=== PATIENT | male | born 1960 | race African-American/Black ===

== ENCOUNTER 2016-08-21 19:29 | Emergency (ER) | payer OTHER ==
--- NOTE | ~2016-08-21 | CR173 ---
[facility] A Service [facility] RADIOLOGY TEXT RESULTS PATIENT: SCOTTY BRASHER LOCATION: [facility] : 62 UNIT #: [id number] AGE: [address]: Jacob Garcia MD SEX: M ORDER DR: [id number] [facility] [address] [address] [facility]. [place], [place] [address] [id number] MR#: [id number] Acc #: [id number] NAME: SCOTTY BRASHER : 1960 SEX: M STUDY DATE/TIME: 08/21/2016 21:37 UNIT: ARTEMIO ROOM: STUDY DESCRIPTION: CR Knee 3 Views Rt Ordering Physician: Luis Physicians Primary Care Physician: Wale Tinajero Aprn MEDICAL IMAGING REPORT This report is preliminary unless electronic signature is present EXAM Right knee 08/21 INDICATIONS Knee pain radiating proximally. Some swelling. Symptoms started today after fall. FINDINGS 3 views of the right knee were obtained. There is patellofemoral osteoarthritis. There is a small joint effusion. No clear acute fracture is seen. There is a small calcification along the anterior-superior margin of the patella. This could lie within the quadriceps tendon. This would be unusual appearance of an acute fracture. IMPRESSION There is patellofemoral osteoarthritis with a small joint effusion. Small calcification along the anterior-superior margin of the patella is probably a chronic finding within the quadriceps tendon. This would be unusual appearance of an acute fracture fragment. Dictated by... Sha Soliman Jr., M.D. THIS IS AN ELECTRONICALLY VERIFIED REPORT Sha Soliman Jr., M.D. at 08/21/2016 10:25 PM RLK/ally TD: 08/21/2016 22:15 JOB #: [id number] MEDICAL IMAGING REPORT [facility] A Service [facility] RADIOLOGY TEXT RESULTS PATIENT: SCOTTY BRASHER LOCATION: [facility] : 62 UNIT #: [id number] AGE: [address]: Jacob Garcia MD SEX: M ORDER DR: Page 1 of 1 COPY
[~2016-08-21 19:29] MED LIST: [UNRECOGNIZED DRUG - OTHER] PO
== END 2016-08-22 00:20 | disposition home or self-care (01) ==
LOC: CED 19:29
DX: S01.01XA Laceration without foreign body of scalp, initial encounter (principal); S83.91XA Sprain of unspecified site of right knee, initial encounter; W10.9XXA Fall (on) (from) unspecified stairs and steps, initial encounter; Y92.009 Unspecified place in unspecified non-institutional (private) residence as the place of occurrence of the external cause
CPT/HCPCS: 29505; 73562; 99283

== ENCOUNTER → 2016-08-30 | Outpatient (CLI) | payer OTHER ==
[~2016-08-30] MED LIST changes: +HYDROCHLOROTHIA25 MG PO; +SPRITAM250 MG
--- NOTE | ~2016-08-30 | MR104 ---
[facility] A Service of [facility] & [facility] RADIOLOGY TEXT RESULTS PATIENT: SCOTTY BRASHER LOCATION: [facility] : 62 UNIT #: [id number] AGE: [address]: SAQIB CONNOR APRN SEX: M ORDER DR: [id number] [facility] [address] [place], [place] [address] [id number] O MR#: [id number] Acc #: [id number] NAME: SCOTTY RBASHER. : 1960 SEX: M STUDY DATE/TIME: 08/30/2016 13:11 UNIT: [facility] ROOM: STUDY DESCRIPTION: MR Knee Wo Contrast Rt Attending Physician: Saqib Connor Aprn Referring Physician: Saqib Connor Aprn Ordering Physician: Saqib Connor Aprn Primary Care Physician: Wale Tinajero Aprn MRI CENTER REPORT This report is preliminary unless electronic signature is present. EXAM MRI right knee - quadriceps tendon protocol, 08/30/2016 HISTORY Order states right knee pain. Recent fall on 08/21. [place] a pop. Evaluate for quadriceps or patellar tendon rupture. History sheet states no prior surgery. History of leukemia. Anterior knee pain in the patellar region radiates to the lateral side since a fall on 08/21/2016. No knee surgery. FINDINGS There is near complete disruption/detachment of the quadriceps tendon at the patellar insertion. There may be a small stump of tendon along the anterior superior patella. The majority of the tendon is detached with the exception of the posterior half of the vastus lateralis. There is mild patella baja. There is an interposed acute to subacute hematoma with apparent communication between the suprapatellar bursa and the superficial subcutaneous space where there is mild generalized inflammation. The patellar tendon is intact. Cruciate ligaments are normal. Menisci, collateral ligaments, and popliteus tendon are intact. Small full-thickness chondral lesion or fissure of the central weightbearing medial femoral condyle measures approximately 5.0 mm AP x 4.0 mm transverse. Articular cartilage of the medial and lateral compartments is otherwise normal. There is a subcentimeter focus of grade 4 chondromalacia of the patella at the junction of the lateral facet and median ridge. There is underlying marrow edema. [facility]. [facility] A Service of [facility] & [facility] RADIOLOGY TEXT RESULTS PATIENT: SCOTTY BRASHER LOCATION: [facility] : 62 UNIT #: [id number] AGE: [address]: SAQIB CONNOR APRN SEX: M ORDER DR: Posterior subcutaneous inflammation is noted. There is a thin small popliteal cyst measuring 4.0-5.0 cm in length. IMPRESSION 1. Near-complete quadriceps tendon detachment from the superior pole of the patella sparing a segment of the vastus lateralis detailed above. There is an interposed acute-subacute hematoma at the disruption site spanning the suprapatellar bursa to the subcutaneous space. Associated surrounding inflammation and soft tissue hemorrhage. 2. High-grade chondromalacia patella. 3. Small effusion and small popliteal cyst. 4. Approximately 5.0 x 4.0 mm full-thickness chondral fissure/lesion of the weightbearing medial femoral condyle. Dictated by... Kimberli Strong M.D. THIS IS AN ELECTRONICALLY VERIFIED REPORT Kimberli Strong M.D. at 09/01/2016 2:40 PM Emil TD: 09/01/2016 11:10 JOB #: [id number] MRI CENTER REPORT Page 1 of 1 COPY
== END | disposition home or self-care (01) ==
LOC: CMRI 12:42
DX: M25.561 Pain in right knee (principal); S80.01XA Contusion of right knee, initial encounter; M25.461 Effusion, right knee; M71.21 Synovial cyst of popliteal space [Baker], right knee; M22.41 Chondromalacia patellae, right knee
CPT/HCPCS: 73721

== ENCOUNTER 2016-09-03 09:52 | Inpatient (IN) | payer OTHER ==
--- NOTE | ~2016-09-03 | DS ---
Unit #: [id number] #: [id number] Patient: SCOTTY BRICE [id number] [facility] [address] [facility]. [place], [place] [address] [id number] I MR#: [id number] NAME: SCOTTY BRICE ROOM: [facility] Age: 56 Sex: M Admission Date: 09/03/2016 : 1960 Discharge Date: 09/06/2016 Attending Physician: Joby Nolan M.D. Primary Care Physician: Wale Tinajero, Yahir DISCHARGE SUMMARY ADMITTING DIAGNOSIS Rupture of right quad tendon. DISCHARGE DIAGNOSIS Rupture of right quad tendon, status post right quad tendon repair. SECONDARY DIAGNOSIS Hypertension. ATTENDING Dr. Nolan - Orthopedic Surgery. PROCEDURES On 09/03/2016, the patient underwent a right quad tendon repair. Please see operative report for further details. BRIEF HISTORY Mr. Brice is a 56-year-old male who was seen by us in the office as a followup from [facility]. He states that he recently fell when going down a set of stairs and heard an awful pop in his right knee. After the fall, he was unable to bear weight on the right lower extremity or bring his right knee into active extension. He presented to the ER for further workup. He was then told to follow up with us in the office. In the office, an MRI was ordered to further evaluate for rupture of the quad tendon. MRI report did show rupture of the quad tendon. We recommended a right quad tendon repair. Risks, benefits and alternatives were discussed with the patient and he elected to proceed with surgery on 09/03/2016. HOSPITAL COURSE On the night of surgery, the patient was transferred to the Orthopedic Unit for postoperative care. The patient remained stable overnight. On postop day #1, the patient was awake, alert and oriented x3 and in no acute distress. He did have elevated blood pressure at 184/90. Other vital signs were stable. He was also complaining of uncontrolled right knee pain with his current pain medication regimen. He remained in the knee immobilizer. This was removed in the room so that the right knee dressing could be observed which was clean, dry and intact. He then was able to move his ankle up and down as well as all five digits. Normal sensation to light touch in all five digits. His DP and PT pulses were 2+. He worked with physical therapy on transfers with a walker. They recommended additional physical therapy as well as rehab placement at discharge. The patient's pain medications were increased for better pain control. P.r.n. hydralazine was also ordered for increased blood Unit #: [id number] #: [id number] Patient: SCOTTY BRICE. This was given once the morning of 09/04/2016, which adequately brought down his blood pressure. Since then, his blood pressures remained controlled. The patient did refuse labs on postop day #1. The patient was placed aspirin and SCDs for DVT prophylaxis. On postop day #2, the patient's vital signs remained stable. He did not have to have any additional doses of hydralazine. He is awake, alert and oriented x3 and in no acute distress. His incision is clean, dry and intact. He had mild swelling around the incision site but no hematoma. He is able to move his ankle up and down as well as all five digits. He had normal sensation to light touch in all five digits. His DP and PT were 2+. He will remain non-weight bearing on the right lower extremity and a knee immobilization. He will continue working with physical therapy today. His pain was better controlled on his current pain medications. The patient continues to refuse any lab draws. He remains in SCDs for DVT prophylaxis. We will also start him on a two week course of Xarelto 10 mg, one tab p.o. daily. We will consult the enterprise resource planner for rehab placement. The patient states that prior to admission he was living with friends and sleeping on the couch. He states that he just got an apartment secured yesterday but he does not have a place to sleep in it yet. We discussed rehab placement and he has agreed to stay at rehab for extra help with physical therapy postoperatively. CONDITION ON DISCHARGE Stable. DISPOSITION The patient will be DC'd to rehab on 09/06/2016. DISCHARGE MEDICATIONS 1. Hydrochlorothiazide 20 mg p.o. daily. 2. Percocet 5/325 mg, one to two tabs p.o. q.4 hours p.r.n. The patient was given a script for Percocet and to dispense 65 tablets. 3. Xarelto 10 mg, one tab p.o. daily for an additional 12 days at discharge. The patient was also given a script to dispense 12 tablets. DISCHARGE INSTRUCTIONS The patient will follow up with Dr. Nolan in two weeks time for evaluation of the right knee. He will remain non-weight bearing on the right lower extremity and in his knee immobilization at all times. He will not have any knee range of motion with physical therapy at rehab. He is to have daily dressing changes to the right knee incision with a clean, dry dressing. He is not to get his right knee incision wet until his followup appointment. Dictated by... Saqib Connor APRN for Greer Paredes/ela TD: 09/06/2016 11:51 JOB #: [id number] Unit #: [id number] #: [id number] Patient: SCOTTY BRICE DISCHARGE SUMMARY Page 1 of 1 X SAQIB CONNOR APRN X DISCHARGE SUMMARY
--- NOTE | ~2016-09-03 | CR7 ---
[facility] A Service of [facility] & [facility] RADIOLOGY TEXT RESULTS PATIENT: SCOTTY BRASHER LOCATION: [facility] 475-01 : 62 UNIT #: [id number] AGE: [address]: Joby Nolan MD SEX: M ORDER DR: [id number] [facility] [address] [facility]. [place], [place] [address] [id number] I MR#: [id number] Acc #: [id number] NAME: SCOTTY BRASHER : 1960 SEX: M STUDY DATE/TIME: 09/09/2016 16:39 UNIT: [facility] ROOM: [facility] STUDY DESCRIPTION: CR Abdomen Single AP View Attending Physician: Joby Nolan M.D. Ordering Physician: Physician Non-Staff Primary Care Physician: Wale Tinajero Aprn MEDICAL IMAGING REPORT This report is preliminary unless electronic signature is present EXAM AP view of the abdomen HISTORY Constipation for 3 days. Mid abdominal pain and cramping. COMPARISON STUDIES None. FINDINGS There is a large stool burden in the colon consistent with history of constipation. No evidence for bowel obstruction. Visualized osseous structures are unremarkable. IMPRESSION Large amount of stool in the colon consistent with history of constipation. Dictated by... Jae Espinoza M.D. THIS IS AN ELECTRONICALLY VERIFIED REPORT Jae Espinoza M.D. at 09/10/2016 8:17 AM NENA/rodrigo TD: 09/09/2016 19:27 JOB #: [id number] MEDICAL IMAGING REPORT Page 1 of 1 COPY
--- NOTE | ~2016-09-03 | OR ---
Unit #: [id number] #: [id number] Patient: SCOTTY BRICE [id number] [address] [place], [place] [address] [id number] I MR#: [id number] NAME: SCOTTY BRICE ROOM: 454 Date of Procedure: 09/03/2016 Admission Date: 09/03/2016 Surgeon: Joby Nolan M.D. : 1960 Attending Physician: Joby Nolan M.D. Primary Care Physician: Wale Tinajero, Yahir OPERATIVE REPORT PREOPERATIVE DIAGNOSIS Right quadriceps tendon rupture. POSTOPERATIVE DIAGNOSIS Right quadriceps tendon rupture. PROCEDURE PERFORMED Right quadriceps tendon repair via transosseous tunnels. ORDER SELECTOR Rosalie Schilling. ANESTHESIA General plus regional femoral nerve block. ESTIMATED BLOOD LOSS 25 mL. INDICATIONS FOR PROCEDURE Mr. Brice is a 56-year-old gentleman, who sustained an injury to his right knee resulting in a quadriceps tendon rupture. This was confirmed by MRI. The nature of the surgical repair was discussed with the patient and he elected to proceed. DESCRIPTION OF PROCEDURE The patient was identified in the preoperative holding area. The operative site was marked. Preoperative antibiotics were administered. A regional femoral nerve block was performed. The patient was brought to the operating room and placed supine on the operating table. A general anesthetic was induced. The right leg was identified. A tourniquet was applied. The right lower extremity was then prepped and draped in sterile fashion. The leg was exsanguinated and tourniquet inflated. A midline incision was made over the superior pole of the patella extending distally with the patellar tendon. Dissection was carried down through subcutaneous tissues. Medial and lateral skin flaps were elevated. Immediately, visible was a traumatic rupture through the quadriceps tendon extending medially and laterally into the retinacular tissues. This was debrided and cleaned back to healthy-appearing tissue. The patella was identified. The site of a reinsertion was planned. #5 Ethibond was then placed in a locking Krackow fashion up and down the quadriceps tendon. A second suture was then passed in a similar fashion Unit #: [id number] #: [id number] Patient: SCOTTY BRICE giving us 4 tails exiting the quadriceps tendon. Three transosseous tunnels were then drilled through the patella. The patient had hard cortical bone and 2 drill bits were broken in the patella. One of these was able to be removed. The second was not accessible to removal and was visualized under C-arm imaging and confirmed to be completely within the confines of the patella. This was therefore left in place. The sutures were passed and then shuttled underneath the patellar tendon to both medial and lateral aspects of the patella. These were then tied securing the quadriceps tendon down to bone. This was then oversewn and reinforced with a running locking #2 Vicryl. The repair was then complete. The wound was irrigated and then closed with 0 Vicryl, 2-0 Vicryl, and kati in the skin. The patient was placed back into a knee immobilizer. DISPOSITION Stable to the recovery room. Dictated by... Greer Paredes/elaine TD: 09/04/2016 05:32 JOB #: [id number] OPERATIVE REPORT Page 1 of 1 X Joby Nolan MD X PROCEDURE OPERATIVE NOTE
--- NOTE | ~2016-09-03 | CR119 ---
[facility] A Service of [facility] & [facility] RADIOLOGY TEXT RESULTS PATIENT: SCOTTY BRASHER LOCATION: [facility] : 62 UNIT #: [id number] AGE: [address]: Joby Nolan MD SEX: M ORDER DR: [id number] [facility] [address] [facility] [place], [place] [address] [id number] I MR#: [id number] Acc #: [id number] NAME: SCOTTY BRASHER : 1960 SEX: M STUDY DATE/TIME: 09/03/2016 12:48 UNIT: [facility] ROOM: [facility] STUDY DESCRIPTION: CR Fluoro Up To 1 Hr Attending Physician: Joby Nolan M.D. Ordering Physician: Joby Nolan M.D. Primary Care Physician: Wale Tinajero Aprn MEDICAL IMAGING REPORT This report is preliminary unless electronic signature is present EXAM Fluoroscopy up to 1 hour, 09/03/2016. HISTORY Right quadriceps tendon repair. COMPARISON Right knee radiographs, 08/21/2016. FINDINGS Two intraoperative fluoroscopic images were obtained by Dr. Nolan. Orthopedic fixation pin projects over the patella in this patient for quadriceps tendon repair. Please refer to the operative report for additional findings and recommendations. FLUOROSCOPY 2 fluoroscopic images. 20 seconds fluoroscopy time was documented. Dictated by... Sarah Holman M.D. THIS IS AN ELECTRONICALLY VERIFIED REPORT Sarah Holman M.D. at 09/03/2016 5:28 PM Keo TD: 09/03/2016 16:11 JOB #: [id number] MEDICAL IMAGING REPORT Page 1 of 1 COPY
--- NOTE | ~2016-09-03 | EKG ---
PATIENT: SCOTTY BRASHER UNIT #: [id number] Ventricular Rate: 74 BPM Atrial Rate: 74 BPM P-R Interval: 198 ms QRS Duration: 86 ms Q-T Interval: 378 ms QTC Calculation(Bezet): 419 ms P Arona: 38 degrees Calculated R Arona: -16 degrees Calculated T Arona: -34 degrees Diagnosis Line: Normal sinus rhythm Diagnosis Line: Minimal voltage criteria for LVH, may be normal Diagnosis Line: variant Diagnosis Line: Borderline ECG Diagnosis Line: No previous ECGs available Diagnosis Line: Confirmed by BEAU URBINA MD ([id number]) on 09/04/2016 Diagnosis Line: 6:34:07 PM INTERPRETING MD: CIARA MINA
--- NOTE | ~2016-09-03 | DS ---
Unit #: [id number] #: [id number] Patient: SCOTTY BRASHER [id number] [address] [address] [id number] I MR#: [id number] NAME: SCOTTY BRASHER ROOM: [facility] Age: 56 Sex: M Admission Date: 09/03/2016 : 1960 Discharge Date: 09/09/2016 Attending Physician: Joby Nolan M.D. Primary Care Physician: Wale Tinajero Aprn DISCHARGE SUMMARY ADDENDUM Due to issues finding rehab placement, the patient's discharge was delayed until 09/09/2016. On the day of discharge, the patient had not had a bowel movement since admission. Multiple oral laxatives were administered without any success. A KUB was then obtained, which did not show any bowel obstruction. He was then discharged to rehab on 09/09/2016. The rest of his stay in the hospital was uneventful. Dictated by... Saqib Connor APRN for Greer Paredes/xavier TD: 09/10/2016 23:44 JOB #: [id number] DISCHARGE SUMMARY Page 1 of 1 X SAQIB CONNOR APRN X DISCHARGE SUMMARY
[~2016-09-03 09:52] MED LIST changes: -HYDROCHLOROTHIA25 MG PO; -SPRITAM250 MG
[2016-09-03] MEDS ORDERED: SPRITAM250 MG (10:11)
[2016-09-03] MEDS ORDERED: HYDROCHLOROTHIA25 MG PO (10:12)
[2016-09-03 11:16] LABS: BUN/CREATININE RATIO 8.46; CALCIUM SERUM 9.1 mg/dL (8.4-10.2); CREATININE SERUM 1.3 mg/dL (0.6-1.4); GLOM FILT RATE Estimated 71.2 mL/min (>60)
== END 2016-09-09 20:25 | DRG 489 ==
LOC: CSUR 09:52 → C4B 10:42 → CSUR 10:42 → CPACUOF 10:42 → C4B 15:03 → C4C 09-05 16:22
PROVIDERS: Orthopaedic Surgery
PROC: 0QC Lower Bones, Extirpation (ICD-10-PCS; 2016-09-03)
PROC: 0LQQ0ZZ Repair Right Knee Tendon, Open Approach (ICD-10-PCS; principal; 2016-09-03 09:00)
DX: S86.811A Strain of other muscle(s) and tendon(s) at lower leg level, right leg, initial encounter (principal); I10 Essential (primary) hypertension; W10.9XXA Fall (on) (from) unspecified stairs and steps, initial encounter
CPT/HCPCS: 73560; 74000; 76000; 80048; 93005; 94760; 94762; 97116; 97161; 97530; G0378; J0360; J0690; J2250; J2270; J2405; J2710; J2795; J3010